=== PATIENT | female | born 1970 | race American Indian/Alaskan Native ===

== ENCOUNTER 2019-01-09 10:30 | Outpatient (CLI) | payer OTHER ==
--- NOTE | 2019-01-09 12:00 | Cat Scan Report ---
CT PELVIS WITHOUT CONTRAST History: Pelvic pain, post surgical bleeding-vaginal pelvic mass. Technique: Helical CT without IV or oral contrast. Sagittal and coronal reformatted images. Findings: No comparison at this facility. Hysterectomy changes are suspected. The vaginal cuff appears intact although there is mild surrounding fat stranding which could be related to recent surgery. There is also a 2.6 x 1.8 cm focal density in the mid pelvis mesenteric fat which is of uncertain significance. This does not have the typical appearance of a mass or adenopathy. This may also be related to recent surgery. There is no evidence for pelvic fluid collection or abscess. A 2.2 cm cyst is suspected in the left ovary. The right ovary bladder and visualized bowel loops in the pelvis are unremarkable. Normal appendix. The bony pelvis is within normal limits. IMPRESSION: Surgical changes as described. 2.2 cm left ovarian cyst. No pelvic abscess or suspicious mass is identified.
== END 2019-01-09 10:31 | disposition home or self-care (01) ==
LOC: CT 10:30
PROVIDERS: ATTEND Obstetrics & Gynecology
DX: N83.202 Unspecified ovarian cyst, left side (principal); N93.9 Abnormal uterine and vaginal bleeding, unspecified; I10 Essential (primary) hypertension; E66.9 Obesity, unspecified; Z72.89 Other problems related to lifestyle
CPT/HCPCS: 72192

== ENCOUNTER 2019-02-18 12:31 | Day surgery (SDC) | payer OTHER ==
[2019-02-18] MEDS ORDERED: LACTATED RINGERS 1,000 ML IV SCH (13:26)
[2019-02-18] MEDS ORDERED: VERSED IV NR (15:00)
[2019-02-18] MEDS ORDERED: SUBLIMAZE ONE (16:07)
[2019-02-18] MEDS ORDERED: XYLOCAINE MPF 2% ONE (16:07)
[2019-02-18] MEDS ORDERED: DIPRIVAN 10 MG/ML IV ONE (16:08)
[2019-02-18] MEDS ORDERED: NACL 0.9% IR ONE (16:35)
[2019-02-18] MEDS ORDERED: ZOFRAN ONE (16:58)
[2019-02-18] MEDS ORDERED: DECADRON ONE (16:58)
[2019-02-18] MEDS ORDERED: MONSEL'S TP ONE (17:12)
[2019-02-18] MEDS ORDERED: BREVIBLOC IV ONE (17:29)
[2019-02-18] MEDS ORDERED: DILAUDID ONE (17:50)
--- NOTE | 2019-02-18 17:54 | Anesthesia Consultation ---
Anesthesia Consult and Med Hx - Airway Anesthetic Teeth Evaluation: Good ROM Head & Neck: Adequate Mallampati Class: Class II Intubation Access Assessment: Good - Pulmonary Exam CTA: Yes - Cardiac Exam Cardiac Exam: RRR - Pre-Operative Health Status ASA Pre-Surgery Classification: ASA2 Proposed Anesthetic Plan: General - Pulmonary Hx Smoking: No Hx Asthma: No Hx Respiratory Symptoms: No COPD: No Hx Pneumonia: No Hx Sleep Apnea: No - Cardiovascular System Hx Hypertension: Yes Hx Heart Murmur: Yes - Central Nervous System Hx Psychiatric Problems: No - Endocrine Hx Renal Disease: No Hx End Stage Renal Disease: No Hx Non-Insulin Dependent Diabetes: No Hx Hypothyroidism: No - Hematic Hx Anemia: Yes - Other Systems Hx Alcohol Use: Yes (Occas) Hx Cancer: No Hx Obesity: Yes
--- NOTE | 2019-02-18 17:54 | Anesthesia Day of Surgery ---
Anesthesia Day of Surgery - Day of Surgery Patient Examined: Yes Patient H&P Reviewed: Yes Patient is NPO: Yes
[2019-02-18] MEDS ORDERED: ZOFRAN IV PRN (17:55)
[2019-02-18] MEDS ORDERED: DILAUDID IV PRN (17:55)
--- NOTE | 2019-02-18 17:55 | Post Anesthesia Evaluation ---
- Post Anesthesia Evaluation Patient Participated: Yes Airway Patent: Yes Stable Respiratory Function: Yes Nausea/Vomiting: No Temp > 96.8F: Yes Pain Manageable: Yes Adequeate Hydration: Yes Anesthesia Complications: No Block Receding Appropriately: Not Applicable Patient on Ventilator: No
--- NOTE | 2019-02-18 18:08 | Operative Report ---
Operative Report Operative Report: Preoperative diagnosis: 1. Vaginal cuff bleeding. 2. History total abdominal hysterectomy. Postoperative diagnosis: 1. Vaginal cuff granulation tissues. 2. Endometriosis implants in vaginal cuff. Procedure: 1. Examination under anesthesia. 2. Cauterization of vaginal cuff granulation tissues and endometriosis implants. Surgeon: Dr. Lake. Forestry Biology Specialist: none Anesthesia: IV sedation EBL: none IVF: RL 1 liter. Procedure details: Risks, benefits, and alternatives of the procedure were discussed in detail with the patient which included but not limited to the risk of infection and bleeding. The patient expressed understanding, her questions were answered, and she gave informed consent. The patient was taken to the operating room with an IV fluid infusing ringers lactate. In the operating room, she was placed in a dorsal supine position and given IV sedation with MAC. Then, she was placed on the stirrups in the dorsolithotomy position. The perineum and vagina were washed and she was prepared and draped in usual sterile fashion. A weighted speculum was placed under posterior vaginal wall. Granulation tissues and two endometriosis implants were visible on the left and right corner of the vaginal cuff . These were cauterized. Monsel's solution was applied. The counts of laps, needles, sponges, and instruments were correct 2. The patient tolerated the procedure well. She was awakened from the anesthesia and taken to the recovery room in a stable condition.
[2019-02-18 18:18] VITALS: BP 134/82
== END 2019-02-18 19:00 | disposition home or self-care (01) ==
LOC: OR 12:31
PROVIDERS: ATTEND Obstetrics & Gynecology
DX: N93.8 Other specified abnormal uterine and vaginal bleeding (principal); D64.9 Anemia, unspecified; I10 Essential (primary) hypertension; M19.90 Unspecified osteoarthritis, unspecified site; Z90.49 Acquired absence of other specified parts of digestive tract; Z72.89 Other problems related to lifestyle; Z98.890 Other specified postprocedural states; Z90.710 Acquired absence of both cervix and uterus; Z79.899 Other long term (current) drug therapy; Z90.79 Acquired absence of other genital organ(s)
CPT/HCPCS: 57061; J1100; J1170; J2250; J2405; J2704; J3010; J7120